=== PATIENT | female | born 1990 | race Caucasian/White ===

== ENCOUNTER 2018-08-05 22:53 | Emergency (ER) | payer MEDICAID ==
[~2018-08-05] VITALS: Ht 157.5 cm; Wt 59.0 kg
[2018-08-06] MEDS ORDERED: KETOROLAC 30MG/ML VIAL IM ONE (01:15)
[2018-08-06 01:23] VITALS: BP 124/77
== END 2018-08-06 01:38 | disposition home or self-care (01) ==
LOC: ER 22:53
DX: K02.9 Dental caries, unspecified (principal); K08.409 Partial loss of teeth, unspecified cause, unspecified class; F17.210 Nicotine dependence, cigarettes, uncomplicated
CPT/HCPCS: 81025; 96372; 99283; J1885

== ENCOUNTER 2018-09-08 10:56 | Emergency (ER) | payer MEDICAID ==
[~2018-09-08] VITALS: Ht 157.5 cm; Wt 63.5 kg
[2018-09-08] MEDS ORDERED: ONDANSETRON HCL 4MG/2ML INJ IV ONE (13:15)
[2018-09-08] MEDS ORDERED: SODIUM CHLORIDE 0.9% 1,000 ML IV ONE (13:15)
[2018-09-08 13:28] LABS: CLARITY URINE CLOUDY (CLEAR); COLOR URINE YELLOW (YELLOW); KETONES URINE NEGATIVE (NEGATIVE); LEUKOCYTE ESTERASE URINE 2+ (NEGATIVE); NITRITE URINE POSITIVE (NEGATIVE); OCCULT BLOOD URINE NEGATIVE (NEGATIVE); PROTEIN URINE NEGATIVE (NEGATIVE); SPECIFIC GRAVITY URINE 1.024 (1.005-1.030); UROBILINOGEN URINE 0.2 E.U./dL (0.2-1.0)
[2018-09-08] MEDS ORDERED: ACETAMINOPHEN 325MG TABLET PO ONE (13:45)
[2018-09-08 14:20] LABS: *BARBITURATES SCREEN URINE NEGATIVE (NEGATIVE)
[2018-09-08 14:21] LABS: *AMPHETAMINES SCREEN URINE PRESUMTIVE POSITIVE (NEGATIVE); *BENZODIAZEPINES SCREEN URINE NEGATIVE (NEGATIVE); *COCAINE SCREEN URINE NEGATIVE (NEGATIVE); CANNABINOID URINE SCREEN NEGATIVE (NEGATIVE); METHADONE URINE SCREEN NEGATIVE (NEGATIVE); OPIATES URINE SCREEN NEGATIVE (NEGATIVE); PHENCYCLIDINE URINE SCREEN NEGATIVE (NEGATIVE)
[2018-09-08 14:33] LABS: CHLORIDE 103 mEq/L (98-107); HEMATOCRIT. 38.2 % (36.0-48.0); HEMOGLOBIN. 13.1 g/dL (12.0-16.0); MEAN CORPUSCULAR HEMOGLOBIN 31.2 pg (28.0-32.0); MEAN CORPUSCULAR VOLUME 90.9 fL (81.0-99.0); MEAN PLATELET VOLUME 7.5 fl (7.4-10.4); PLATELET 319 x1000/uL (130-400); RED CELL DISTRIBUTION WIDTH 12.9 % (11.6-14.6)
[2018-09-08 14:37] LABS: ETHANOL BLOOD < 10 mg/dL
[2018-09-08 14:43] LABS: PROTHROMBIN TIME 9.9 sec (9.1-11.1)
[2018-09-08 14:59] LABS: B-HCG QUANTITATIVE 10192 mIU/mL (<3)
[2018-09-08] MEDS ORDERED: CEFAZOLIN 1000MG PREMIX 50 ML IV ONE (15:15)
[2018-09-08 15:24] LABS: HCG SCREEN POSITIVE
[2018-09-08 15:31] LABS: PLATELET ESTIMATE NORMAL
[2018-09-08 17:08] VITALS: BP 103/58
== END 2018-09-08 17:21 | disposition home or self-care (01) ==
LOC: ER 10:56
DX: O23.41 Unspecified infection of urinary tract in pregnancy, first trimester (principal); O99.331 Smoking (tobacco) complicating pregnancy, first trimester; F17.200 Nicotine dependence, unspecified, uncomplicated; O21.9 Vomiting of pregnancy, unspecified; Z3A.01 Less than 8 weeks gestation of pregnancy; F12.10 Cannabis abuse, uncomplicated; F15.10 Other stimulant abuse, uncomplicated
CPT/HCPCS: 36415; 76801; 76817; 80053; 80305; 81003; 81025; 83690; 84702; 84703; 85025; 85610; 86850; 86900; 86901; 87077; 87086; 87186; 87804; 96361; 96365; 96375; 99284; G0482; J0690; J2405; J7030